=== PATIENT | female | born 1995 ===

== ENCOUNTER 2021-03-03 14:43 | Inpatient (IN) ==
[2021-03-03 15:14] LABS: Bacteria,Urine Occasional /HPF (Few); Bilirubin,Urine Negative (Negative); Blood, Urine Negative (Negative); Glucose,Urine (UA) Negative (Negative); Ketones,Urine Negative (Negative); Mucus,Urine Occasional /LPF (Occasional); Nitrite,Urine Negative (Negative); Protein,Urine >=500 MG/DL; RBC,Urine 1 /HPF (0-4); Squamous Epithelial Cell,Urine Occasional /HPF (0-10); Urine Appearance CLEAR (Clear); Urine Color Yellow (Yellow); Urine Specific Gravity 1.018 (1.001-1.035); Urine Urobilinogen < 2.0 EU/DL (0.2-1.0)
[2021-03-03] MEDS ORDERED: MEPERIDINE 50 MG/1 ML VIAL IM ONE (16:17)
[2021-03-03] MEDS ORDERED: ONDANSETRON 4 MG/2 ML VIAL IM ONE (16:17)
[2021-03-03] MEDS ORDERED: NIFEdipine 10 MG CAPSULE PO ONE (17:08)
[2021-03-03] MEDS: LACTATED RINGERS 1,000 ML IV SCH (17:26)
[2021-03-03 17:29] LABS: Basophils % 0.4 % (0.0-0.8); Eosinophils # 0.1 10*3/uL (0.0-0.87); Eosinophils % 1.3 % (0.00-10.9); Hematocrit 31.8 VOL% (35.7-47.0); Hemoglobin 9.3 GM/DL (12.0-16.0); Immature Granulocytes % 0.3 %; Immature Granulocytes Absolute 0.02 #; Lymphocytes # 2.6 10*3/uL (1.4-4.0); Lymphocytes % 34.5 % (21.3-54.2); Mean Corpuscular HGB Conc 29.2 GM/DL (32-36); Mean Corpuscular Volume 72.4 FL (87-102); Mean Platelet Volume 10.4 FL (9.6-12.0); Monocytes % 7.6 % (1.7-12.7); Neutrophils % 55.9 % (38.7-73.9); Platelet Count 340 T/CUMM (130-400); Red Blood Count 4.39 MC/CUMM (3.8-5.5); White Blood Count 7.7 T/CUMM (4-12)
[2021-03-03] MEDS: NIFEdipine 10 MG CAPSULE PO SCH ×2 (17:40→18:02)
[2021-03-03 17:47] LABS: INR 0.9; PT Patient Result 10.5 SECS (10.5-12.0); Partial Thromboplastin Time 22.4 SECS (23.9-33.8)
[2021-03-03 17:49] LABS: Alanine Aminotransferase 18 U/L (13-56); Albumin 2.2 G/DL (3.4-5.0); Alkaline Phosphatase 125 U/L (45-117); Aspartate Amino Transferase 20 U/L (0-37); Bilirubin,Direct < 0.050 MG/DL (0.0-0.20); Bilirubin,Total < 0.39 MG/DL (0.20-1.00); Blood Urea Nitrogen 11 MG/DL (7-18); Calcium 10.9 MG/DL (8.5-10.1); Carbon Dioxide 24 MMOL/L (21-32); Estimated Glom Filtration Rate 161 ML/MIN; Glucose 109 MG/DL (74-106); Osmolality,Calculated 267.2 MOS/KG (273-304); Potassium 4.1 MMOL/L (3.5-5.1); Sodium 134 MMOL/L (136-145); Total Protein 7.3 G/DL (6.4-8.2); Uric Acid 7.6 MG/DL (2.6-6.0)
[2021-03-03 18:09] LABS: Protein/Creatinine Ratio,Urine 1.8 RATIO
[2021-03-03] MEDS ORDERED: DEXTROSE 50% 25 GM/50 ML VIAL IV PRN (21:24)
[2021-03-03] MEDS ORDERED: GLUCAGON 1 MG VIAL IM PRN (21:24)
[2021-03-03] MEDS: LABETALOL 200 MG TABLET PO SCH (21:41)
[2021-03-04] MEDS ORDERED: BUTORPHANOL 1 MG/ML VIAL IV ONE
[2021-03-04] MEDS ORDERED: ONDANSETRON 4 MG/2 ML VIAL IM ONE
[2021-03-04] MEDS ORDERED: ONDANSETRON 4 MG/2 ML VIAL IV ONE (00:01)
[2021-03-04] MEDS ORDERED: OXYTOCIN/LR 30 UNIT/1,000 ML BAG IV PRN (00:01)
[2021-03-04] MEDS: LACTATED RINGERS 1,000 ML IV SCH (00:14)
[2021-03-04] MEDS: ACETAMINOPHEN 500 MG TABLET PO PRN ×2 (01:57→08:00)
[2021-03-04] MEDS ORDERED: ceFAZolin 3,000 MG in SYRINGE 1 EACH IV ONE (07:00)
[2021-03-04] MEDS ORDERED: CITRIC ACID/SODIUM CITRATE 30 ML UDCUP PO ONE (07:00)
[2021-03-04] MEDS ORDERED: FAMOTIDINE 20 MG/2 ML VIAL IV ONE (07:00)
[2021-03-04] MEDS ORDERED: OXYTOCIN 10 UNIT/ML VIAL IM ONE (07:39)
[2021-03-04] MEDS ORDERED: miSOPROStoL 200 MCG TABLET ONE (08:20)
[2021-03-04] MEDS ORDERED: METHYLERGONOVINE 0.2 MG/1 ML AMP ONE (08:21)
[2021-03-04] MEDS ORDERED: CARBOPROST TROMETHAMINE 250 MCG/ML AMP IM ONE (08:21)
[2021-03-04] MEDS ORDERED: BUPIVACAINE SPINAL 0.75% 2 ML AMP SPINAL ONE (08:31)
[2021-03-04] MEDS ORDERED: ONDANSETRON 4 MG/2 ML VIAL ONE (08:31)
[2021-03-04] MEDS ORDERED: PHENYLEPHRINE 1 MG/10 ML SYRINGE IV ONE (08:31)
[2021-03-04 10:10] LABS: Cord Arterial Blood HCO3 26.7 MMOL/L
[2021-03-04] MEDS ORDERED: LACTATED RINGERS 1,000 ML IV ONE (10:12)
[2021-03-04 10:13] LABS: Cord Venous Blood HCO3 20.8 MMOL/L; Cord Venous Blood PO2 31.7
[2021-03-04 10:25] LABS: Bacteria,Urine Occasional /HPF (Few); Bilirubin,Urine Negative (Negative); Blood, Urine Negative (Negative); Glucose,Urine (UA) Negative (Negative); Ketones,Urine 5 mg/dL (Negative); Mucus,Urine Occasional /LPF (Occasional); Nitrite,Urine Negative (Negative); Protein,Urine 100 MG/DL; RBC,Urine <1 /HPF (0-4); Squamous Epithelial Cell,Urine Occasional /HPF (0-10); Urine Appearance CLEAR (Clear); Urine Color Yellow (Yellow); Urine Specific Gravity 1.009 (1.001-1.035); Urine Urobilinogen < 2.0 EU/DL (0.2-1.0)
[2021-03-04] MEDS ORDERED: DEXTROSE 50% 25 GM/50 ML VIAL IV PRN ×2 (10:37→16:18)
[2021-03-04] MEDS ORDERED: SIMETHICONE CHEW 80 MG TABLET PO PRN (10:37)
[2021-03-04] MEDS ORDERED: ONDANSETRON 4 MG/2 ML VIAL IV PRN (10:37)
[2021-03-04] MEDS ORDERED: ACETAMINOPHEN 325 MG TABLET PO PRN (10:37)
[2021-03-04] MEDS ORDERED: RHO(D) IMMUNE GLOBULIN 300 MCG SYRINGE IM ONE (10:37)
[2021-03-04] MEDS ORDERED: OXYTOCIN/LR 20 UNIT/1,000 ML BAG IV ONE (10:37)
[2021-03-04] MEDS ORDERED: GLUCAGON 1 MG VIAL IM PRN (10:37)
[2021-03-04] MEDS ORDERED: LACTATED RINGERS 1,000 ML IV SCH (11:00)
[2021-03-04] MEDS: INSULIN REGULAR 100 UNIT/ML SUBCUT SCH ×2 (11:26→20:17)
[2021-03-04] MEDS: LABETALOL 200 MG TABLET PO SCH (11:29)
[2021-03-04] MEDS: ACETAMINOPHEN 500 MG TABLET PO SCH ×2 (13:52→18:13)
[2021-03-04] MEDS ORDERED: HYDROmorphone 2 MG/1 ML VIAL IV PRN (14:02)
[2021-03-04] MEDS ORDERED: NIFEdipine 10 MG CAPSULE PO ONE ×3 (14:22→14:45)
[2021-03-04] MEDS: IBUPROFEN 800 MG TABLET PO PRN (19:20)
[2021-03-04 19:48] LABS: Basophils % 0.3 % (0.0-0.8); Eosinophils # 0.1 10*3/uL (0.0-0.87); Eosinophils % 1.2 % (0.00-10.9); Hematocrit 27.3 VOL% (35.7-47.0); Hemoglobin 7.9 GM/DL (12.0-16.0); Immature Granulocytes % 0.3 %; Immature Granulocytes Absolute 0.02 #; Lymphocytes % 26.4 % (21.3-54.2); Mean Corpuscular HGB Conc 28.9 GM/DL (32-36); Mean Platelet Volume 10.8 FL (9.6-12.0); Monocytes % 7.3 % (1.7-12.7); Neutrophils % 64.5 % (38.7-73.9); Platelet Count 285 T/CUMM (130-400); Red Blood Count 3.69 MC/CUMM (3.8-5.5); Red Cell Distribution Width 14.7 % (9.3-17.3); White Blood Count 7.5 T/CUMM (4-12)
[2021-03-04] MEDS: DOCUSATE SODIUM 100 MG CAPSULE PO SCH (20:32)
[2021-03-05] MEDS: INSULIN REGULAR 100 UNIT/ML SUBCUT SCH ×4 (02:17→22:05)
[2021-03-05] MEDS: ACETAMINOPHEN 500 MG TABLET PO SCH (02:18)
[2021-03-05 04:11] LABS: Basophils % 0.3 % (0.0-0.8); Eosinophils # 0.2 10*3/uL (0.0-0.87); Eosinophils % 2.3 % (0.00-10.9); Hematocrit 25.8 VOL% (35.7-47.0); Hemoglobin 7.6 GM/DL (12.0-16.0); Immature Granulocytes % 0.4 %; Immature Granulocytes Absolute 0.03 #; Lymphocytes # 2.7 10*3/uL (1.4-4.0); Lymphocytes % 33.3 % (21.3-54.2); Mean Corpuscular HGB Conc 29.5 GM/DL (32-36); Mean Corpuscular Volume 72.7 FL (87-102); Mean Platelet Volume 10.7 FL (9.6-12.0); Monocytes % 8.7 % (1.7-12.7); Platelet Count 262 T/CUMM (130-400); Red Blood Count 3.55 MC/CUMM (3.8-5.5); Red Cell Distribution Width 14.7 % (9.3-17.3)
[2021-03-05 04:33] LABS: Atypical Lymphocytes Few; Eosinophils 1 % (0-10); Hypochromasia 1+; Lymphocytes 33 % (20-55); Microcytosis 1+; Segmented Neutrophils 58 % (50-85); Total Cells Counted 100
[2021-03-05 04:34] LABS: Platelet Estimate Normal; Polychromasia Slight
[2021-03-05] MEDS: MAGNESIUM HYDROXIDE SUSP 30 ML UDCUP PO PRN ×2 (08:43→20:44)
[2021-03-05] MEDS: FERROUS SULFATE 325 MG TABLET PO SCH ×3 (08:43→20:45)
[2021-03-05] MEDS: METOCLOPRAMIDE 10 MG TABLET PO SCH ×2 (08:43→17:52)
[2021-03-05] MEDS: MULTIVITAMIN (PRENATAL) TABLET PO SCH (08:43)
[2021-03-05] MEDS: DOCUSATE SODIUM 100 MG CAPSULE PO SCH ×2 (08:44→20:44)
[2021-03-05] MEDS ORDERED: SODIUM CHLORIDE 0.9% 1,000 ML IV PRN (09:15)
[2021-03-05] MEDS: IBUPROFEN 800 MG TABLET PO PRN ×2 (12:00→20:45)
[2021-03-05 20:47] LABS: Hematocrit 32.9 VOL% (35.7-47.0)
[2021-03-05] MEDS ORDERED: oxyCODONE/ACETAMINOPHEN 5-325 MG TABLET PO PRN (22:07)
[2021-03-05] MEDS: oxyCODONE/ACETAMINOPHEN 5-325 MG TABLET PO PRN (23:10)
[2021-03-06] MEDS: IBUPROFEN 800 MG TABLET PO PRN ×3 (06:17→22:10)
[2021-03-06] MEDS: oxyCODONE/ACETAMINOPHEN 5-325 MG TABLET PO PRN ×3 (06:17→22:09)
[2021-03-06] MEDS: MULTIVITAMIN (PRENATAL) TABLET PO SCH (08:12)
[2021-03-06] MEDS: FERROUS SULFATE 325 MG TABLET PO SCH ×3 (08:12→21:12)
[2021-03-06] MEDS: DOCUSATE SODIUM 100 MG CAPSULE PO SCH ×2 (08:12→21:12)
[2021-03-06] MEDS: INSULIN REGULAR 100 UNIT/ML SUBCUT SCH ×4 (12:07→21:13)
[2021-03-07] MEDS: oxyCODONE/ACETAMINOPHEN 5-325 MG TABLET PO PRN ×2 (06:02→13:13)
[2021-03-07] MEDS: IBUPROFEN 800 MG TABLET PO PRN (06:02)
[2021-03-07] MEDS: MULTIVITAMIN (PRENATAL) TABLET PO SCH (08:12)
[2021-03-07] MEDS: FERROUS SULFATE 325 MG TABLET PO SCH (08:12)
[2021-03-07] MEDS: DOCUSATE SODIUM 100 MG CAPSULE PO SCH (08:12)
[2021-03-07] MEDS: INSULIN REGULAR 100 UNIT/ML SUBCUT SCH (08:19)
[2021-03-07 12:00] VITALS: BP 159/97
== END 2021-03-07 15:00 | disposition home or self-care (01) | DRG 540 ==
LOC: N.LDOUT 14:43 → N.LD 14:45 → N.OB 03-04 15:19
PROVIDERS: ADMIT Obstetrics & Gynecology; ATTEND Obstetrics & Gynecology
PROC: LDCSECT (ICD-10-PCS; 2021-03-04 09:25)